=== PATIENT | female | born 1950 | race Caucasian/White ===

== ENCOUNTER 2018-10-31 11:10 | Day surgery (SDC) | payer OTHER ==
[~2018-10-31 11:10] MED LIST: PROPOFOL 500 MG/50 ML EMU IV ONE
[2018-10-31] MEDS ORDERED: PROPOFOL 10 MG/ML 200 MG/20 ML EMU IV ONE (12:22)
[2018-10-31 13:00] VITALS: BP 150/86; PULSE 88; RESP 18; TEMP 97.6; O2SAT 98
== END 2018-10-31 13:28 | disposition home or self-care (01) | DRG 951 ==
LOC: SURG 11:10
PROVIDERS: ATTEND Surgery
DX: Z12.11 Encounter for screening for malignant neoplasm of colon (principal); K57.32 Diverticulitis of large intestine without perforation or abscess without bleeding; E11.9 Type 2 diabetes mellitus without complications; Z86.010 Personal history of colon polyps
CPT/HCPCS: G0105; J2704